=== PATIENT | male | born 1970 | race Caucasian/White ===

== ENCOUNTER → 2021-12-31 | Outpatient (CLI) | payer OTHER ==
--- NOTE | 2021-12-31 15:31 | Diagnostic Imaging Report ---
INDICATION: CONTUSION OF LEFT KNEE TECHNIQUE: 3 views of the left knee. CORRELATION STUDY: None. FINDINGS: Moderate joint space narrowing both medially and laterally. Mild marginal spur formation, particularly medially. Significant spur-like formation at the patellofemoral compartment. Prominent suprapatellar joint effusion. IMPRESSION: 1. Advanced tricompartmental degenerative changes of the left knee. Prominent joint effusion. Dictated by: Dictated on workstation # [id number]
== END ==
LOC: RAD FS 13:40
PROVIDERS: ATTEND Nurse Practitioner
DX: S80.02XA Contusion of left knee, initial encounter (principal); M17.12 Unilateral primary osteoarthritis, left knee; X58.XXXA Exposure to other specified factors, initial encounter
CPT/HCPCS: 73564